=== PATIENT | female | born 1945 | race Caucasian/White ===

== ENCOUNTER → 2018-09-16 | Outpatient (CLI) | payer OTHER, MEDICARE ==
--- NOTE | 2018-09-16 20:24 | Diagnostic Imaging Report ---
PROCEDURE: US right lower extremity venous. TECHNIQUE: Multiple real-time grayscale images were obtained over the right lower extremity in various projections. Additional duplex Doppler and color Doppler images were also obtained. DATE: September 16, 2018. INDICATION: 73-year-old female, right calf pain. COMPARISON: None. FINDINGS: The right common femoral vein, right superficial femoral vein and right popliteal vein are all compressible. Visualized portions of the greater saphenous vein and deep femoral vein are patent. There is normal blood flow and response to augmentation within the right lower extremity deep veins. The right peroneal and posterior tibial veins are patent. IMPRESSION: Negative for right lower extremity deep venous thrombosis. Dictated by: Dictated on workstation # [id number]
== END ==
LOC: RAD 15:50
PROVIDERS: ATTEND Family Medicine
DX: M79.661 Pain in right lower leg (principal)

== ENCOUNTER 2021-11-12 11:15 | Outpatient (RCR) | payer MEDICARE, OTHER | END 2021-11-13 17:00 | disposition home or self-care (01) | PROVIDERS: ATTEND Neurological Surgery | DX: Z48.89 Encounter for other specified surgical aftercare (principal); E11.9 Type 2 diabetes mellitus without complications; I10 Essential (primary) hypertension; Z98.1 Arthrodesis status ==

== ENCOUNTER 2021-11-13 07:38 | Emergency (ER) | payer MEDICARE, OTHER ==
--- NOTE | 2021-11-13 08:05 | ED CPR ---
HPI-CPR General Chief Complaint: Code Blue Stated Complaint: CODE Source of Information: EMS, Family History of Present Illness Date Seen by Provider: Nov 13, 2021 Time Seen by Provider: 08:01 Initial Comments Patient is a 76-year-old female brought to the emergency department by EMS full cardiac arrest ACLS protocol in progress. Patient witnessed down approxiapproximately 7 AM this morning. Fire responded, 07 10. 2 rounds of defibrillation, EMS placed an LMA, multiple rounds of epinephrine prior to arrival 3-4 more rounds of defibrillation for ventricular fibrillation. No ROSC was achieved. On arrival CPR continues to be in progress, 2 more rounds of epinephrine, tube exchanged for definitive airway 8.0 ET tube. Defibrillated x1 here in the emergency room for fine V. fib. Again no ROSC achieved. Total length of resuscitative efforts approximately 45 minutes. Time of 07 47 Further history per family patient had woken up with some stomach discomfort. Her gave her some Tums. He heard her go down on the couch. She has a history of hypertension, diabetes, coronary artery disease. 1 prior stent. She recently had back surgery 10 weeks ago and had physical therapy yesterday. No complaints of recent illness. She was complaining of feeling "hot" this morning. Initial Complaints: Abdominal Pain, Collapsed Witnessed Arrest: Yes Bystander CPR: No Paramedics Initial Findings: No Pulse, Unresponsive, V-FIB Pre Hospital Treatment: Bag Valve Mask, Defibrillation, Intubation (LMA), Oxygen, IV Fluids, Amiodorone (mg) (450), Epinephrine (mg) (3) Allergies and Home Medications Patient Home Medication List Home Medication List Reviewed: Yes Review of Systems Review of Systems Constitutional: see HPI Other Comments unable to obtain from patient due to cardiac arrest Physical Exam Vital Signs Capillary Refill : Height, Weight, BMI Height: '" Weight: lbs. oz. kg; BMI Method: General Appearance: Obese HEENT: Other (pupils fixed at 5mm; upper dentures removed for intubation) Neck: Normal Inspection Respiratory: Rhonci (bilateral with BVW/ETT) Cardiovascular: Other (no pulse, no heart sounds) Gastrointestinal: Soft, Distended Extremity: Normal Inspection, No Pedal Edema Neurologic/Psychiatric: Other (unresponsive) Skin: Cool, Pallor Progress/Results/Core Measures Results/Orders Lab Results Laboratory Tests Test 11/13/21 07:46 Range/Units Glucometer 146 H 70-110 MG/DL Progress Progress Note : Time: 08:06 Progress Note Family informed with inspector process present Departure Impression Primary Impression: Cardiac arrest Disposition: 20 Condition: Departure-Patient Inst. Referrals: ANA MARÍA RHODES MD (PCP/Family) Primary Care Physician KELLEY OLEARY MD Nov 13, 2021 08:05
[2021-11-13 08:13] VITALS: BP 0/0
== END 2021-11-13 10:47 | disposition expired ==
LOC: EDUNIT# 07:38 → ER 07:39
DX: I46.9 Cardiac arrest, cause unspecified (principal); E66.9 Obesity, unspecified
CPT/HCPCS: 82947